=== PATIENT | male | born 1945 | race Caucasian/White ===

== ENCOUNTER → 2017-04-27 | Outpatient (CLI) | payer MEDICARE ==
[~2017-04-27] MED LIST: ASPI-1471 PO; DONE5TAB36 PO; LEVE500T73 PO; MEMA5TAB14 PO; PROP60CA22 PO
--- NOTE | 2017-04-29 18:56 | RT HOLTER TEST ---
[place] [facility] [place] NAME: DIONICIO OSHEA : [id number] MR: [id number] V: [id number] EXAM DATE: ORDERING PHYSICIAN: EARLINE SANCHEZ TECHNOLOGIST: JENAE Hook-up date: 2017-04-27 13:03:00 Duration: 47:52:00 Test Indications: CEREBRAL ISCHEMIA Medications: PROPRANOLOL KEPPRA MEMATINE NIACIN DONEPEZIL [id number] QRS complexes 130 Ventricular ectopics which represent <1 % of total QRS comp. 32 Supraventricular ectopics which represent <1 % of total QRS comp. * Paced QRS complexes which represent % of total QRS comp. VENTRICULAR ECTOPY 130 Isolated 0 Bigeminal Cycles 0 Couplets 0 Runs 0 Beats in Runs * Beats LONGEST at * BPM at :: -- * Beats FASTEST at * BPM at :: -- SUPRAVENTRICULAR ECTOPY 30 Isolated 1 Couplets 0 Runs 0 Beats in Runs * Beats LONGEST at * BPM at :: -- * Beats FASTEST at * BPM at :: -- HEART RATES 46 MIN at 13:22:00 2017-04-28 63 AVG 92 MAX at 09:22:25 2017-04-28 LONGEST RR 1.544 secs at 12:54:26 2017-04-28 S-T LEVELS Channel 1 -1.000 mm MIN at 11:41:45 2017-04-28 1.600 mm MAX at 19:48:45 2017-04-28 Channel 2 -1.000 mm MIN at 11:01:30 2017-04-28 2.600 mm MAX at 08:03:15 2017-04-28 Channel 3 -1.600 mm MIN at 11:02:00 2017-04-28 1.200 mm MAX at 16:18:45 2017-04-[address] and T wave abnormality Premature supraventricular complexes Premature ventricular complexes Confirmed by POONAM HI ([id number]) on 04/29/2017 6:55:38 PM Referred By: Overread By: POONAM HI
== END ==
LOC: RESP 12:50
PROVIDERS: ATTEND Physician Assistant
DX: G45.9 Transient cerebral ischemic attack, unspecified (principal); R41.89 Other symptoms and signs involving cognitive functions and awareness; R29.898 Other symptoms and signs involving the musculoskeletal system; R20.8 Other disturbances of skin sensation; R29.2 Abnormal reflex; F48.2 Pseudobulbar affect; I10 Essential (primary) hypertension; R41.3 Other amnesia; I49.3 Ventricular premature depolarization
CPT/HCPCS: 93225; 93226

== ENCOUNTER → 2017-04-29 | Outpatient (CLI) | payer MEDICARE ==
--- NOTE | 2017-04-29 13:52 | RADIOLOGY IMAGING REPORT ---
FACILITY: [facility] - [place] PATIENT NAME: Jaron Rg : 1945 MR: [id number] V: [id number] EXAM DATE: ORDERING PHYSICIAN: MINDI KERN TECHNOLOGIST: Location: [facility] Patient: Jaron Rg : 1945 Visit/Account:[id number] Date of Sevice: 04/29/2017 ORBITS FOREIGN BODY 1 VIEW INDICATION: Evaluate for orbital foreign debris, pre-MRI COMPARISON: None available FINDINGS: No dense orbital foreign debris identified. Clear sinuses. Dental fillings noted. No osse ous abnormality. IMPRESSION: No dense orbital foreign debris. Normal orbit radiograph. Report Dictated By: Fahad Oneil MD at 04/29/2017 1:47 PM Report E-Signed By: Fahad Oneil MD at 04/29/2017 1:47 PM WSN:[id number]
--- NOTE | 2017-04-29 15:20 | RADIOLOGY IMAGING REPORT ---
FACILITY: [facility] - [place] PATIENT NAME: Jaron Rg : 1945 MR: [id number] V: [id number] EXAM DATE: ORDERING PHYSICIAN: MINDI KERN TECHNOLOGIST: Location: [facility] [place] Patient: Jaron Rg : 1945 Visit/Account:[id number] Date of Sevice: 04/29/2017 CAROTID HISTORY: TIA, hypertension COMPARISON: None. FINDINGS: Grayscale, duplex and color Doppler interrogation of the extracranial carotid and vertebral arteries was performed bilateral. On the right, peak systolic velocities within the common and internal carotid arteries are 68 and 71 cm/sec respectively. There is mild intimal thickening seen throughout the right common carotid arter y. A small amount of soft and hard plaque identified at the right carotid bulb extending into the pr oximal right internal carotid artery. Antegrade flow within the common, internal and external caroti d arteries as well as vertebral artery. ICA/CCA ratio 1. On the left, peak systolic velocities within the common and internal carotid arteries are 84 and 69 c m/sec respectively. There is mild intimal thickening throughout the left common carotid artery. Is a moderate amount of hard and soft plaque seen at the left carotid bulb extending into the proximal l eft external and internal carotid arteries.. Antegrade flow within the common, internal and external carotid arteries as well as vertebral artery. ICA/CCA ratio 1.1. IMPRESSION: There is mild intimal thickening seen in both common carotid arteries. There is a small amount of hard and soft plaque at the right carotid bulb extending into the proximal right internal carotid artery although no hemodynamically significant lesions identified by velocity criteria There is a moderate amount of hard and soft plaque at the left carotid bulb extending into the proxim al left internal and external carotid arteries although no hemodynamically significant lesions identi fied by velocity criteria Velocity criteria are extrapolated from diameter data as defined by the Society of Radiologists in Ul trasound Consensus Conference Radiology 2003; 229;340-346 Report Dictated By: Janiya Locke MD at 04/29/2017 3:13 PM Report E-Signed By: Janiya Locke MD at 04/29/2017 3:16 PM WSN:[email or web address]
--- NOTE | 2017-04-29 16:03 | RADIOLOGY IMAGING REPORT ---
FACILITY: [facility] PATIENT NAME: Jaron Rg : 1945 MR: [id number] V: [id number] EXAM DATE: ORDERING PHYSICIAN: MINDI KERN TECHNOLOGIST: Location: [facility] - [place] Patient: Jaron Rg : 1945 Visit/Account:[id number] Date of Sevice: 04/29/2017 BRAIN W/O CONTRAST ADDITIONAL PERTINENT HISTORY: Possible stroke COMPARISON STUDIES: Head CT April 11, 2017 TECHNIQUE: Multi-planar, multi-sequence brain MRI was performed without IV contrast administration. FINDINGS: Ventricles / sulci / fissures: There is moderate diffuse central cortical atrophy present Masses / hemorrhage / midline shift: Negative. Intra-axial: There are multiple foci of increased T2 and FLAIR signal intensity throughout the perive ntricular white matter with no evidence of restricted diffusion, hemorrhage or mass effect.. Extra-axial fluid collections: Negative. Intracranial vasculature and dural sinuses: Skull base / calvarium: Negative. Visualized mastoid air cells / paranasal sinuses: There is mucosal thickening in both maxillary sinus es Orbits: Negative. Scalp: Negative Upper neck:Negative. IMPRESSION: There are multiple foci of increased FLAIR and T2 signal intensity throughout the periventricular whi te matter with no evidence of restricted diffusion, hemorrhage or mass effect. Is likely represent c hronic microischemic changes Mucosal thickening in both maxillary sinuses Report Dictated By: Janiya Locke MD at 04/29/2017 3:52 PM Report E-Signed By: Janiya Locke MD at 04/29/2017 3:58 PM WSN:[id number]
== END ==
LOC: MRI 03:53
PROVIDERS: ATTEND Physician Assistant
DX: I65.23 Occlusion and stenosis of bilateral carotid arteries (principal); J34.89 Other specified disorders of nose and nasal sinuses
CPT/HCPCS: 70030; 70551; 93880

== ENCOUNTER → 2017-05-11 | Outpatient (CLI) | payer MEDICARE ==
--- NOTE | 2017-05-13 09:20 | RADIOLOGY IMAGING REPORT ---
FACILITY: [facility] [place] PATIENT NAME: DIONICIO OSHEA : [id number] MR: [id number] V: [id number] EXAM DATE: ORDERING PHYSICIAN: MINDI KERN TECHNOLOGIST: Ze Hardin EXAMINATION:TWO-DIMENSIONAL ECHOCARDIOGRAPH REASON:POSSIBLE STROKE 2D Measurements (normal values in centimeters) LV endLV endRV endVent.LV PostAorticLeftPercent DiastolicSystolicDiastolicSeptumWallRootAtriumShortening (3.5-5.7)(0.9-2.6)(0.6-1.1)(0.6-1.1)(2.0-3.7)(1.9-4.0)(25-35%) [id number] STROKE VOLUME: 50ml ESTIMATED EJECTION FRACTION:57% PARASTERNAL LONG AXIS: Overall left ventricular function appears to be normal. Patient appears to be in sinus rhythm. Chamber sizes appear to be normal. There appears to be mild to borderline concentric left ventricular thickening but no evidence for any outflow tract obstruction. There is no systolic anterior motion of the mitral valve leaflet. No significant gradient through the left ventricle. Right ventricle appears to contract normally & the TAPSE measured 2.5 which is within normal ranges. Mild mitral annular calcification but no stenosis of the valve was noted. Color examination of the mitral valve revealed a trace amount of mitral insufficiency. Color examination of the aortic valve was unremarkable. PARASTERNAL SHORT AXIS: Overall left ventricular function appears to be normal. No wall motion abnormalities are noted. The aortic valve was trileaflet in configuration & appears to open normally. Color examination of the valves reveals a trace to mild amount of pulmonic insufficiency & a trace amount of tricuspid & mitral insufficiency present. APICAL FOUR AND TWO CHAMBER: Normal left ventricular ejection fraction is noted. Mild mitral annular calcification. Aortic valve area & mitral valve area both measure within normal ranges at 3.3 & 3.1cm2 respectively. Left atrial & right atrial volumes are measured within normal ranges at 28 & 15ml/m2. Trace amount of mitral insufficiency is noted. The tricuspid regurgitation Vmax is measured at 1.93mj/sec. There is a trace of tricuspid insufficiency present. SUBCOSTAL VIEW: No pericardial effusion was noted but the view was very technically difficult. No atrioseptal or ventriculoseptal defects were appreciated but an agitated saline bubble contrast was not done as we could not get ahold of the provider to authorize a bubble study. Doppler examination of the mitral valve in diastole does reveal the A wave > E wave. The IVC is normal in size. OVERALL IMPRESSION: 1. Normal left ventricular ejection fraction at 57% with a Grade 1/4 decrease in diastolic function. 2. Mild concentric left ventricular thickening but no evidence for any outflow tract obstruction. 3. Borderline enlargement of the right ventricle with all the other chamber sizes being normal. 3. A trileaflet aortic valve with no abnormalities. 4. A trace of mitral, tricuspid & pulmonic insufficiencies with estimated right ventricular pressures within normal ranges at 18mm Hg. 5. No thrombi were noted in the chambers but the left atrial appendage was not seen. 6. No atrioseptal or ventriculoseptal defects were noted but we were unable to do an agitated saline bubble contrast study as the provider could not be contacted. Dictated by: Bartolo Casas M.D. on 05/11/2017 at 20:22 Transcribed by: PAIGE on 05/12/2017 at 15:29 Approved by: Bartolo Casas M.D. on 05/13/2017 at 9:19 [facility]
== END ==
LOC: US 05-05 01:21
PROVIDERS: ATTEND Physician Assistant
DX: I34.0 Nonrheumatic mitral (valve) insufficiency (principal); I07.1 Rheumatic tricuspid insufficiency; I37.1 Nonrheumatic pulmonary valve insufficiency
CPT/HCPCS: 93306

== ENCOUNTER 2017-06-24 01:41 | Day surgery (SDC) | payer MEDICARE ==
[~2017-06-24] VITALS: Ht 182.9 cm; Wt 100.7 kg
[~2017-06-24 01:41] MED LIST changes: +CITA-139 PO; +FISH1CAP15 PO; +LEVE-14 PO; +MULT1CAP59 PO; +NIAC500T85 PO; +PROP160C20 PO
[2017-06-24] MEDS ORDERED: OPHTHALMIC PROCEDURE 2 OD PRN ×2 (12:50)
[2017-06-24] MEDS ORDERED: OPHTHALMIC PROCEDURE 1 OD PRN (12:50)
[2017-06-24 13:05] VITALS: BP 129/76
[2017-06-24] MEDS ORDERED: LIDOCAINE/SOD BICARB 8.4% SYR ID ONE (13:30)
[2017-06-24] MEDS ORDERED: NORMOSOL R SOLN(*) 1000 ML BAG 1,000 ML IV PRN (13:30)
[2017-06-24] MEDS ORDERED: MIDAZOLAM 2 MG/2 ML VIAL IVP PRN (13:30)
[2017-06-24] MEDS ORDERED: ALBUTEROL/IPRATROPIUM 3 ML NEB ONE (13:54)
[2017-06-24] MEDS ORDERED: acetaZOLAMIDE 500 MG CAPCR PO ONE (14:00)
[2017-06-24] MEDS ORDERED: hydrALAZINE HCL 20 MG/ML VIAL ONE (15:41)
[2017-06-24 15:52] VITALS: BP 162/93
--- NOTE | 2017-06-24 19:20 | FOSTER RIGHT EYE CATARACT ---
EVENT DATE: June 24, 2017 SURGEON: Nam Hsu MD ANESTHESIOLOGIST: None. ANESTHESIA: Topical. PREOPERATIVE DIAGNOSIS Cataract, right eye. POSTOPERATIVE DIAGNOSIS Cataract, right eye. PROCEDURE Phacoemulsification of cataractous lens with implantation of an intraocular lens , right eye. DESCRIPTION OF PROCEDURE The risks and benefits and alternatives were carefully discussed with the patient, and preoperative consent was obtained. The patient was brought to the operating room after receiving topical anesthetic. The patient was prepped and draped using sterile technique in the usual manner. A stab incision was made, and the chamber was inflated with preservative-free lidocaine. DuoVisc was injected to inflate the chamber. A 2.2 mm blade was used to enter the anterior chamber. Utrata forceps were used to tear a circular capsulorrhexis. BSS was used to hydrodissect the nucleus. Phaco tip was introduced, and the nucleus was chopped into four quadrants. Each quadrant was removed. The I/A tip was used to remove the cortex. The bag was inflated with ProVisc. The intraocular lens was injected into the capsular bag. The I/A tip was used to remove the ProVisc. The wound was found to be watertight. Vigamox, Nevanac, and Maxitrol ointment were placed in the patient's eye. The patient's eye was patched, and the patient was taken to the recovery room in stable condition. The patient was examined in the recovery room and found to be stable prior to release from the hospital. MILLICENT
== END 2017-06-24 16:30 | disposition home or self-care (01) ==
LOC: OR 01:41
PROVIDERS: ATTEND Ophthalmology
DX: H25.11 Age-related nuclear cataract, right eye (principal)
CPT/HCPCS: 66984; 94640; 94667; A9270; J0360; J7620; V2632

== ENCOUNTER 2017-10-23 10:56 | Emergency (ER) | payer MEDICARE ==
[~2017-10-23 10:56] MED LIST changes: -CITA-139 PO; +CITA-145 PO
--- NOTE | 2017-10-23 11:11 | ER Report ---
History and Physical Time Seen By MD: 11:11 Hx. of Stated Complaint: pt disoriented this morning, did not remember yesterday's events, thinks heat stroke yesterday HPI/ROS This is a 72-year-old male who is in relatively good health who was brought in by his family for a transient episode of short-term memory loss today. Family states that he had a similar episode in March that was actually much more profound. At that time it was narrowing memory loss but for brief moments at a time he seemed to be unresponsive with his eyes open. He states that approximately one year ago he had an episode of heat stroke, and since then he said that he does feel the effects of a hot day more so than usual. Yesterday he his took a car trip to [place] where they sat in a large [employer] for most of the day for her grandchild's [employer]. The Fabius was not air conditioned. His states that she did notice some minor changes in his memory yesterday on the way home from the [employer]. For example, he could not remember that years ago he had flattened a large open field. His states that he normally wakes up around 4:00 in the morning, however this morning when she was ready to go to congregation at approximately 0900 he was still sleeping. Another family member stayed behind and states that when the patient woke up he could not remember the events from yesterday. He did not even remember that they went to the [employer]. 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 The patient in the family member tonight any focal weakness or slurred speech or facial droop. Because of the episode that he had in March he is currently seeing a neurologist, and does take Keppra 500 mg twice a day. Remainder of the 14 system rev: Yes Allergies: Coded Allergies: No Known Drug Allergies (Unverified , 04/11/17) Home Meds Reported Medications Multivitamin (MULTIVITAMINS) 1 Each Capsule, 1 EACH PO DAILY, CAPSULE 06/17/17 Niacin (NIACIN) 500 Mg Tablet, 500 MG PO QDAY 06/17/17 Fish Oil/Dha/Epa (FISH OIL 1,200 MG FISH OIL) 1 Each Capsule, 1 EACH PO DAILY, CAPSULE 06/17/17 Citalopram Hydrobromide (CITALOPRAM HBR) 20 Mg Tablet, 20 MG PO QDAY, #5 TAB 06/17/17 Levetiracetam (KEPPRA) 500 Mg Tablet, 500 MG PO BID, TAB 06/17/17 Propranolol Hcl (PROPRANOLOL HCL) 160 Mg Cap.sa.24h, 160 MG PO BID 06/17/17 Aspirin (ASPIR 81) 81 Mg Tablet.dr, 81 MG PO QDAY, TAB 04/11/17 Donepezil Hcl (DONEPEZIL HCL) 5 Mg Tab.rapdis, 5 MG PO QDAY, TAB 04/11/17 Memantine Hcl 5 Mg (NAMENDA 5 MG) 5 Mg Tablet, 5 MG PO BID, TAB 04/11/17 Reviewed Nurses Notes: Yes Old Medical Records Reviewed: Yes Hx Smoking: No Smoking Status: Never Smoker Hx Alcohol Use: Yes Constitutional Vital Sign - Last 24 Hours 10/23/17 11:04 Temp 98.6 Pulse 93 Resp 16 B/P (MAP) 173/103 Pulse Ox 91 O2 Delivery Room Air Intake and Output 10/23/17 10/23/17 10/24/17 14:59 22:59 06:59 Intake Total 1000 ml Balance 1000 ml Physical Exam General Appearance: The patient is alert, has no immediate need for airway protection and no signs of toxicity. Eyes: Pupils equal and round no pallor or injection. ENT, Mouth: Mucous membranes are moist. Respiratory: There are no retractions, lungs are clear to auscultation. Cardiovascular: Regular rate and rhythm. Gastrointestinal: Abdomen is soft and non tender, no masses, bowel sounds normal. Neurological: awake and alert, no CN deficits, no drift, normal strength/ sensation Skin: Warm and dry, no rashes. Neck is supple non tender. Extremities are nontender, nonswollen and have full range of motion. DIFFERENTIAL DIAGNOSIS: After history and physical exam differential diagnosis was considered for altered mental status including but not limited to hypoglycemia, infectious process, electrolyte abnormality, head injury, CVA, TGA , seizure, and intoxicants. Medical Decision Making Data Points Result Diagram: 10/23/17 1126 10/23/17 1126 Laboratory Hematology Test 10/23/17 11:26 10/23/17 13:24 Red Blood Count 5.63 M/uL (4.00-5.60) Mean Corpuscular Volume 89.8 fL (80.0-96.0) Mean Corpuscular Hemoglobin 30.7 pg (26.0-33.0) Mean Corpuscular Hemoglobin Concent 34.2 g/dL (32.0-36.0) Red Cell Distribution Width 13.9 % (11.5-14.5) Mean Platelet Volume 9.5 fL (7.2-11.1) Neutrophils (%) (Auto) 85.8 % (39.4-72.5) Lymphocytes (%) (Auto) 10.4 % (17.6-49.6) Monocytes (%) (Auto) 3.2 % (4.1-12.4) Eosinophils (%) (Auto) 0.2 % (0.4-6.7) Basophils (%) (Auto) 0.4 % (0.3-1.4) Nucleated RBC Relative Count (auto) 0.0 /100WBC Neutrophils # (Auto) 8.9 K/uL (2.0-7.4) Lymphocytes # (Auto) 1.1 K/uL (1.3-3.6) Monocytes # (Auto) 0.3 K/uL (0.3-1.0) Eosinophils # (Auto) 0.0 K/uL (0.0-0.5) Basophils # (Auto) 0.0 K/uL (0.0-0.1) Nucleated RBC Absolute Count (auto) 0.00 K/uL Sodium Level 142 mmol/L (137-145) Potassium Level 4.5 mmol/L (3.5-5.0) Chloride Level 103 mmol/L (98-107) Carbon Dioxide Level 27 mmol/L (22-30) Blood Urea Nitrogen 19 mg/dl (9-21) Creatinine 1.10 mg/dl (0.66-1.25) Glomerular Filtration Rate Calc > 60.0 Random Glucose 174 mg/dl (75-110) Calcium Level 9.0 mg/dl (8.4-10.2) Total Bilirubin 0.5 mg/dl (0.2-1.3) Aspartate Amino Transf (AST/SGOT) 34 U/L (0-35) Alanine Aminotransferase (ALT/SGPT) 43 U/L (0-56) Alkaline Phosphatase 60 U/L (0-126) Troponin I < 0.012 ng/ml Total Protein 7.3 g/dl (6.3-8.2) Albumin 4.2 g/dl (3.5-5.0) Urine Color Sushma Urine Clarity Slightly-cloudy Urine pH 5.0 pH (4.8-9.5) Urine Specific Hershey 1.025 Urine Protein Negative mg/dL (NEGATIVE) Urine Glucose (UA) Negative mg/dL (NEGATIVE) Urine Ketones Negative mg/dL (NEGATIVE) Urine Blood Negative (NEGATIVE) Urine Nitrite Negative (NEGATIVE) Urine Bilirubin Negative (NEGATIVE) Urine Urobilinogen Negative mg/dL (0.2-1.9) Urine Leukocyte Esterase Negative (NEGATIVE) Urine RBC 1 /HPF (0-2/HPF) Urine WBC 2 /HPF (0-5/HPF) Urine Squamous Epithelial Cells None /LPF (</=FEW) Urine Bacteria Negative /HPF (NONE-FEW) Urine Mucus Few /HPF (NONE-FEW) Chemistry Test 10/23/17 11:26 10/23/17 13:24 White Blood Count 10.4 k/uL (4.5-11.0) Red Blood Count 5.63 M/uL (4.00-5.60) Hemoglobin 17.3 g/dL (14.0-18.0) Hematocrit 50.6 % (42.0-52.0) Mean Corpuscular Volume 89.8 fL (80.0-96.0) Mean Corpuscular Hemoglobin 30.7 pg (26.0-33.0) Mean Corpuscular Hemoglobin Concent 34.2 g/dL (32.0-36.0) Red Cell Distribution Width 13.9 % (11.5-14.5) Platelet Count 186 K/uL (150-450) Mean Platelet Volume 9.5 fL (7.2-11.1) Neutrophils (%) (Auto) 85.8 % (39.4-72.5) Lymphocytes (%) (Auto) 10.4 % (17.6-49.6) Monocytes (%) (Auto) 3.2 % (4.1-12.4) Eosinophils (%) (Auto) 0.2 % (0.4-6.7) Basophils (%) (Auto) 0.4 % (0.3-1.4) Nucleated RBC Relative Count (auto) 0.0 /100WBC Neutrophils # (Auto) 8.9 K/uL (2.0-7.4) Lymphocytes # (Auto) 1.1 K/uL (1.3-3.6) Monocytes # (Auto) 0.3 K/uL (0.3-1.0) Eosinophils # (Auto) 0.0 K/uL (0.0-0.5) Basophils # (Auto) 0.0 K/uL (0.0-0.1) Nucleated RBC Absolute Count (auto) 0.00 K/uL Glomerular Filtration Rate Calc > 60.0 Calcium Level 9.0 mg/dl (8.4-10.2) Total Bilirubin 0.5 mg/dl (0.2-1.3) Aspartate Amino Transf (AST/SGOT) 34 U/L (0-35) Alanine Aminotransferase (ALT/SGPT) 43 U/L (0-56) Alkaline Phosphatase 60 U/L (0-126) Troponin I < 0.012 ng/ml Total Protein 7.3 g/dl (6.3-8.2) Albumin 4.2 g/dl (3.5-5.0) Urine Color Sushma Urine Clarity Slightly-cloudy Urine pH 5.0 pH (4.8-9.5) Urine Specific Hershey 1.025 Urine Protein Negative mg/dL (NEGATIVE) Urine Glucose (UA) Negative mg/dL (NEGATIVE) Urine Ketones Negative mg/dL (NEGATIVE) Urine Blood Negative (NEGATIVE) Urine Nitrite Negative (NEGATIVE) Urine Bilirubin Negative (NEGATIVE) Urine Urobilinogen Negative mg/dL (0.2-1.9) Urine Leukocyte Esterase Negative (NEGATIVE) Urine RBC 1 /HPF (0-2/HPF) Urine WBC 2 /HPF (0-5/HPF) Urine Squamous Epithelial Cells None /LPF (</=FEW) Urine Bacteria Negative /HPF (NONE-FEW) Urine Mucus Few /HPF (NONE-FEW) Toxicology Test 10/23/17 11:26 Urinalysis Test 10/23/17 13:24 Urine Color Sushma Urine Clarity Slightly-cloudy Urine pH 5.0 pH (4.8-9.5) Urine Specific Hershey 1.025 Urine Protein Negative mg/dL (NEGATIVE) Urine Glucose (UA) Negative mg/dL (NEGATIVE) Urine Ketones Negative mg/dL (NEGATIVE) Urine Blood Negative (NEGATIVE) Urine Nitrite Negative (NEGATIVE) Urine Bilirubin Negative (NEGATIVE) Urine Urobilinogen Negative mg/dL (0.2-1.9) Urine Leukocyte Esterase Negative (NEGATIVE) Urine RBC 1 /HPF (0-2/HPF) Urine WBC 2 /HPF (0-5/HPF) Urine Squamous Epithelial Cells None /LPF (</=FEW) Urine Bacteria Negative /HPF (NONE-FEW) Urine Mucus Few /HPF (NONE-FEW) EKG/Imaging Imaging Results: CT scan of the head was obtained. The results of the study are no acute changes. The study was read by the radiologist. I viewed the images myself on the PACS system. ED Course/Re-evaluation ED Course 72-year-old male brought to the emergency department by family for a transient episode of short-term memory loss. No other focal neurologic deficits during the amnestic event or in the emergency department. He has a normal neuro exam. He now remembers the events from yesterday. He is currently on Keppra for similar episodes in March, and is currently being followed by a neurologist in [place]. He has no signs of infection. He has normal labs and no acute findings on his CT scan of his head. I don't think this is consistent with a TIA or CVA. He had an MRI after the episode in March which I reviewed. I do not think he needs an acute MRI or MRA today. I think this is either from exposed to heat yesterday of absence seizures. I counseled him to follow up with his neurologist this week. Decision to Disposition Date: Oct 23, 2017 Decision to Disposition Time: 13:49 Depart Departure Latest Vital Signs Vital Signs Date Time Temp Pulse Resp B/P (MAP) Pulse Ox O2 Delivery O2 Flow Rate FiO2 10/23/17 11:04 98.6 93 16 173/103 91 Room Air Impression: Primary Impression: Acute alteration in mental status Condition: Improved Disposition: HOME OR SELF-CARE Referrals: EARLINE SANCHEZ (PCP) Patient Instructions: Amnesia (GEN) Additional Instructions: Follow-up this upcoming week with your neurologist. ADAMS FONSECA MD Oct 23, 2017 11:11
--- NOTE | 2017-10-23 12:07 | EKG ---
FACILITY: [facility] PATIENT NAME: DIONICIO OSHEA : [id number] MR: [id number] V: [id number] EXAM DATE: ORDERING PHYSICIAN: ADAMS FONSECA TECHNOLOGIST: EDGAR Sawyer Reason : Blood Pressure : / mmHG Vent. Rate : 088 BPM Atrial Rate : 087 BPM P-R Int : 170 ms QRS Dur : 084 ms QT Int : 376 ms P-R-T Axes : 045 018 037 degrees QTc Int : 454 ms Sinus rhythm Inferior infarct (cited on or before 11-APR-2017) No ST-T abnormalities When compared with ECG of 11-APR-2017 13:40, Unchanged Confirmed by VALERIE HERNANDEZ ([id number]) on 10/23/2017 2:23:56 PM Referred By: RAYMUNDO Confirmed By:VALERIE HERNANDEZ
[2017-10-23] MEDS ORDERED: NS(*) 0.9% 1000 ML BAG 1,000 ML IV ONE (12:20)
[2017-10-23 12:26] LABS: PLATELET COUNT, AUTOMATED 186 K/uL (150-450)
--- NOTE | 2017-10-23 13:23 | RADIOLOGY IMAGING REPORT ---
FACILITY: [facility] PATIENT NAME: Jaron Rg : 1945 MR: [id number] V: [id number] EXAM DATE: ORDERING PHYSICIAN: ADAMS FONSECA TECHNOLOGIST: Location: [facility] [place] Patient: Jaron Rg : 1945 Visit/Account:[id number] Date of Sevice: 10/23/2017 EXAMINATION: Head CT without intravenous contrast HISTORY: Altered mental status. COMPARISON: MRI of the brain from 04/29/2017. TECHNIQUE: Contiguous axial images were obtained from the skull base to the vertex without intraven ous contrast. Sagittal and coronal reformatted images are also submitted. One of the following dose optimization techniques was utilized in the performance of this exam: Autom ated exposure control; adjustment of the mA and/or kV according to the patient's size; or use of an i terative reconstruction technique. Specific details can be referenced in the facility's radiology C T exam operational policy. FINDINGS: Brain and intracranial structures: Mild cerebral volume loss with corresponding sulcal, ventricular, and cisternal prominence. Patchy hypoattenuating regions in the peripheral and deep cerebral white m atter. Cooper-white matter differentiation is maintained. No midline shift, acute hemorrhage, mass, or evidence of acute infarct Vessels: Calcified plaque of the carotid siphons and vertebral arteries. Calvarium / scalp: Negative. Skull base / visualized face: Rightward deviation of the nasal septum. Mild bone loss about the root of the left maxillary first premolar. Visualized sinuses / orbits: Mild mucosal thickening in the maxillary sinuses. Trace mucosal thicken ing in the ethmoid air cells. Trace mucosal thickening in the right frontal sinus. The right lens has been extracted or replaced. IMPRESSION: No CT evidence of acute intracranial pathology. Moderate chronic small vessel ischemic changes in the cerebral white matter. Mild cerebral atrophy. Report Dictated By: Rodney Messina MD at 10/23/2017 1:10 PM Report E-Signed By: Rodney Messina MD at 10/23/2017 1:19 PM WSN:[id number]
[2017-10-23 13:40] VITALS: BP 149/87
== END 2017-10-23 13:50 | disposition home or self-care (01) ==
LOC: ER 11:14
DX: R41.82 Altered mental status, unspecified (principal); Z86.73 Personal history of transient ischemic attack (TIA), and cerebral infarction without residual deficits
CPT/HCPCS: 70450; 80177; 81001; 84443; 84484; 85025; 93005; J7030; 82040; 82247; 82310; 82374; 82435; 82565; 82947; 84075; 84132; 84155; 84295; 84450; 84460; 84520; 96360; 99284